=== PATIENT | male | born 1950 | race Caucasian/White ===

== ENCOUNTER 2020-12-28 19:13 | Emergency (ER) | payer MEDICARE, OTHER ==
[2020-12-28] MEDS ORDERED: VIBRAMYCIN100 MG PO (21:42)
== END 2020-12-28 21:49 | disposition home or self-care (01) ==
LOC: FER 19:13
DX: S60.450A Superficial foreign body of right index finger, initial encounter (principal); I10 Essential (primary) hypertension; F17.210 Nicotine dependence, cigarettes, uncomplicated; Z95.5 Presence of coronary angioplasty implant and graft; Z98.890 Other specified postprocedural states; Z88.0 Allergy status to penicillin; W45.8XXA Other foreign body or object entering through skin, initial encounter
CPT/HCPCS: 99283